=== PATIENT | male | born 1995 | race Caucasian/White ===

== ENCOUNTER 2023-02-15 09:57 | Outpatient (CLI) | payer BC ==
[2023-02-15 10:27] LABS: GTT GLUCOSE,FASTING 111 mg/dL (70-100)
[2023-02-15 21:08] LABS: ESTIMATED AVERAGE GLUCOSE 174 mg/dL (70-100); HEMOGLOBIN A1c% 7.7 % (4.27-6.07)
== END 2023-02-15 09:58 | disposition home or self-care (01) ==
LOC: LAB 09:57
PROVIDERS: ATTEND Internal Medicine Endocrinology, Diabetes & Metabolism
DX: E11.65 Type 2 diabetes mellitus with hyperglycemia (principal)
CPT/HCPCS: 36415; 82951; 83036